=== PATIENT | female | born 2000 | race Two or more races ===

== ENCOUNTER 2024-03-09 23:48 | Emergency (ER) | payer OTHER, SELFPAY ==
[2024-03-09 23:48] VITALS: BMI 23.6
[2024-03-09 23:58] VITALS: BP 96/66; PULSE 100; RESP 18; TEMP 36.4; O2SAT 99
--- NOTE | 2024-03-10 00:03 | PD.EDURI ---
Upper Respiratory Inf. RME/HPI General Chief Complaint: Flu Like Symptoms Stated Complaint: FLU /VOMITING Time Seen by Provider: 03/09/24 23:50 Arrival date/time: 03/09/24 23:48 23-year-old female presents to the emergency department complaining of diarrhea, nausea vomiting, and cough that is been ongoing since this past Saturday and was diagnosed with influenza yesterday and is taking Tamiflu. Limitations: no limitations Related Data Previous Rx's ?Medication ?Instructions ?Recorded albuterol sulfate 90 mcg/actuation 2 puff inhalation Q6H PRN cough / 10/25/20 aerosol inhaler wheezing #6.7 grams inhalational spacing device #1 ea 10/25/20 (Aerochamber MV spacer) methylprednisolone 4 mg tablets in See Rx Instructions .Route 10/30/20 a dose pack (Medrol ([place])) .COMPLEX #21 tabs hydrocodone 5 mg-acetaminophen 325 1 tab PO BID PRN pain #7 tabs 02/14/21 mg tablet ibuprofen 600 mg tablet 600 mg PO Q6H #30 tabs 05/28/23 ibuprofen 600 mg tablet 600 mg PO Q6H #30 tabs 06/14/23 ibuprofen 600 mg tablet 600 mg PO Q8H PRN pain #20 tabs 03/10/24 ondansetron 4 mg disintegrating 4 mg PO Q8H PRN nausea and 03/10/24 tablet vomiting #7 tabs Allergies Allergy/AdvReac Type Severity Reaction Status Date / Time No Known Allergies Allergy Verified 12/05/23 06:00 Review of Systems Review of Systems Systems Reviewed: All systems reviewed, normal except as documented Constitutional Constitutional: Reports system reviewed and no additional complaints, except as documented, Denies body ache(s), Denies chills and Denies fever(s) Eyes Eyes: Reports system reviewed and no additional complaints, except as documented and Denies change in vision ENT Ears, Nose, Mouth, and Throat: Reports system reviewed and no additional complaints, except as documented, Denies disequilibrium, Denies dizziness, Denies sore throat and Denies vertigo Cardiovascular Cardiovascular: Reports system reviewed and no additional complaints, except as documented, Denies chest pain and Denies dyspnea Respiratory Respiratory: Reports system reviewed and no additional complaints, except as documented, Denies chest congestion, Reports cough and Denies dyspnea Gastrointestinal Gastrointestinal: Reports system reviewed and no additional complaints, except as documented, Denies abdominal pain, Reports diarrhea, Reports nausea and Reports vomiting Musculoskeletal Musculoskeletal: Reports system reviewed and no additional complaints, except as documented, Denies abnormal gait and Denies arthralgias Integumentary/Breasts Skin/Breast: Reports system reviewed and no additional complaints, except as documented, Denies erythema, Denies rash and Denies wounds Neurologic Neurologic: Reports system reviewed and no additional complaints, except as documented, Denies abnormal gait, Denies disequilibrium, Denies dizziness and Denies vertigo Past Medical History Past Medical History NEUROLOGIC: Negative Neurological Disorders CARDIAC: Negative Cardiac Disorders or Congestive Heart Failure RESPIRATORY: Negative Chronic Obstructive Pulmonary Disease (COPD) or Asthma GENITOURINARY: Negative Renal Disease ENDOCRINE: Negative Diabetes Mellitus Type 1 or Diabetes Mellitus Type 2 HEMATOLOGIC: Positive Anemia; Negative Sickle Cell Disease OTHER HISTORY: Positive Blood Transfusions; Negative Falls Social History SMOKING STATUS: Never smoker SECOND HAND EXPOSURE: No SUBSTANCE USE: does not use ED Exam General Limitations: Present no limitations General appearance: Present alert and in no apparent distress Head Head exam: Present atraumatic Eye Eye exam: Present normal appearance, PERRL and EOMI ENT ENT exam: Present normal exam, normal oropharynx and mucous membranes moist Neck Neck exam: Present normal inspection, full ROM and trachea midline Chest Chest inspection: Present normal inspection and symmetric chest wall rise Respiratory Respiratory exam: Present normal lung sounds bilaterally Cardiovascular Cardiovascular exam: Present regular rate, normal rhythm and normal heart sounds Abdominal Exam Abdominal exam: Present soft and normal bowel sounds Extremities Exam Extremities exam: Present normal inspection and full ROM Back Exam Back exam: Present normal inspection and full ROM Neurological Exam Neurological exam: Present alert, oriented X3 and CN II-XII intact Psychiatric Psychiatric exam: Present normal affect and normal mood Skin Skin exam: Present warm, dry, intact and normal color Course Quality Measures none Orders Category Date Time Status Ibuprofen Tab [Motrin Tab] Med 03/10/24 00:11 Discontinued 600 mg PO X1 ONE Ondansetron Odt [Zofran Odt] Med 03/10/24 00:02 Discontinued 4 mg PO X1 ONE Vital Signs Vital signs: Vital Signs Temperature 97.6 F 03/09/24 23:58 Pulse Rate 100 03/09/24 23:58 Respiratory Rate 18 03/09/24 23:58 Blood Pressure 96/66 03/09/24 23:58 Pulse Oximetry (%) 99 03/09/24 23:58 Oxygen Delivery Method Room Air 03/09/24 23:58 99% room air within normal limits Upper Respiratory Infection MDM Narrative MDM Narrative:: 23-year-old female presents to the emergency department complaining of diarrhea, nausea vomiting, and cough that is been ongoing since this past Saturday and was diagnosed with influenza yesterday and is taking Tamiflu. No adventitious lung sounds on auscultation. Abdomen is soft and nontender. Patient appears nontoxic and is hemodynamically stable. Patient reports recently diagnosed with influenza. Moist mucous membranes patient does not appear to be dehydrated. 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 Patient data External records reviewed:: [facility] previous records Clinical information provided by:: patient Social determinants that could affect healthcare access:: none Patient has the following chronic illnesses:: See chart How is presenting disease/condition affected by chronic disease/condition?: uneffected by Evaluation data The following diagnostics were reviewed and interpreted by me:: other (specify) (N/A) Lab and/or radiology exams considered but not ordered:: N/A Interpretation Summary: N/A Medications / Prescriptions Medications or Prescriptions considered but not ordered:: Ordered Medication administrations:: Medication Administration History Discontinued Medications Ibuprofen (Ibuprofen Tab 600 Mg Tablet) 600 mg PO X1 ONE Stop: 03/10/24 00:12 Last Admin: 03/10/24 00:20 Dose: Not Given Documented By: OA Non-Admin Reason: Patient Refused Ondansetron HCl (Ondansetron Odt 4 Mg Tabrap) 4 mg PO X1 ONE; Protocol Stop: 03/10/24 00:03 Last Admin: 03/10/24 00:12 Dose: 4 mg Documented By: OA Given Consultations Consultation(s) initiated? (list below): No Diagnosis Upper Respiratory Differential Diagnosis: upper respiratory infection, viral infection, bronchitis, influenza and pharyngitis Most likely diagnosis given after review of the tests above:: Influenza Admission Indicated Admission indicated?: not indicated Admission Request Was there a request for admission?: No Disposition Plan Disposition Plan: Discharge Discharge Attestation Discharge Attestation: The patient and all family members were given an opportunity to ask questions and understood the discharge instructions. Discharge instructions specifically effects, indications for sooner follow up or return to the emergency department, and the expected course of current diagnosis. Patient condition: Stable Discharge Plan Plan Patient Disposition: HOME (Self Care) Disposition Comment: Stable Prescriptions/Referrals Prescriptions/Med Rec: New ondansetron 4 mg tablet,disintegrating 4 mg PO Q8H PRN (Reason: nausea and vomiting) Qty: 7 0RF ibuprofen 600 mg tablet 600 mg PO Q8H PRN (Reason: pain) Qty: 20 0RF No Action albuterol sulfate 90 mcg/actuation HFA aerosol inhaler 2 puff INH Q6H PRN (Reason: cough / wheezing ) Qty: 6.7 0RF Rx Instructions: administer with spacer (DME) Aerochamber MV spacer See Dose Instructions .ROUTE .MEDSUPPLY Qty: 1 0RF Dose Instruction: As directed Rx Instructions: As directed methylprednisolone [Medrol ([place])] 4 mg tablets,dose pack See Rx Instructions .ROUTE .COMPLEX Qty: 21 0RF Rx Instructions: Follow package instructions hydrocodone-acetaminophen 5-325 mg tablet 1 tab PO BID MDD 3 PRN (Reason: pain) Qty: 7 0RF ibuprofen 600 mg tablet 600 mg PO Q6H Qty: 30 0RF ibuprofen 600 mg tablet 600 mg PO Q6H Qty: 30 0RF Referrals: Temporary Provider,ED [Physician] - In 1 week Problem List Clinical Impression: Influenza Patient/Caregiver Discharge Instructions Discharge Activity: activity as tolerated Education Materials: ED Influenza (Adult) Additional Instructions: Drink plenty of fluids and get plenty of rest. Take Tylenol or ibuprofen as needed for fever or pain. Follow-up with primary care provider in 2 to 3 days. Return to emergency department for any worsening symptoms or as needed. Print Language: Maori Stand Alone Forms: [employer] Award Info., Patient Portal Info Letter PA/OUTSIDE PLANT SUPERVISOR Supervising Physician PA/OUTSIDE PLANT SUPERVISOR Supervising Physician: Dr. Sharma
[2024-03-10] MEDS: ONDANSETRON ODT 4 MG TABRAP PO (00:12)
== END 2024-03-10 00:32 | disposition home or self-care (01) ==
LOC: SERX 03-10 00:30
PROVIDERS: Emergency Provider Emergency Medicine; PCP Nurse Practitioner Family
DX: J11.1 Influenza due to unidentified influenza virus with other respiratory manifestations (principal)
CPT/HCPCS: 99282; Q0162

== ENCOUNTER 2024-04-19 00:28 | Emergency (ER) | payer BC, SELFPAY ==
[2024-04-19 00:29] VITALS: BMI 22.6
--- NOTE | 2024-04-19 00:32 | EKG_ITS ---
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
[2024-04-19 01:09] VITALS: BP 117/78; PULSE 65; RESP 18; TEMP 36.6; O2SAT 100
--- NOTE | 2024-04-19 01:33 | PD.EDANX ---
ED Anxiety RME/HPI General Chief Complaint: Chest Pain Stated Complaint: CHEST PAIN Time Seen by Provider: 04/19/24 01:30 Arrival date/time: 04/19/24 00:28 23F with history of anxiety presents to ED with 2 weeks of intermittent CP and SOB. Patient has a lot of increased stress in personal life including heavy school work-load. Patient denies SI/HI. Limitations: no limitations Related Data Previous Rx's ?Medication ?Instructions ?Recorded albuterol sulfate 90 mcg/actuation 2 puff inhalation Q6H PRN cough / 10/25/20 aerosol inhaler wheezing #6.7 grams inhalational spacing device #1 ea 10/25/20 (Aerochamber MV spacer) methylprednisolone 4 mg tablets in See Rx Instructions .Route 10/30/20 a dose pack (Medrol ([place])) .COMPLEX #21 tabs hydrocodone 5 mg-acetaminophen 325 1 tab PO BID PRN pain #7 tabs 02/14/ mg tablet ibuprofen 600 mg tablet 600 mg PO Q6H #30 tabs 05/28/23 ibuprofen 600 mg tablet 600 mg PO Q6H #30 tabs 06/14/23 ibuprofen 600 mg tablet 600 mg PO Q8H PRN pain #20 tabs 03/10/24 ondansetron 4 mg disintegrating 4 mg PO Q8H PRN nausea and 03/10/24 tablet vomiting #7 tabs Allergies Allergy/AdvReac Type Severity Reaction Status Date / Time No Known Allergies Allergy Verified 12/05/23 06:00 Review of Systems Review of Systems Systems Reviewed: All systems reviewed, normal except as documented Constitutional Constitutional: Reports system reviewed and no additional complaints, except as documented, Denies fever(s) and Denies headache(s) ENT Ears, Nose, Mouth, and Throat: Denies disequilibrium and Denies headache(s) Cardiovascular Cardiovascular: Reports system reviewed and no additional complaints, except as documented, Reports as per HPI, Reports chest pain and Reports dyspnea Respiratory Respiratory: Reports system reviewed and no additional complaints, except as documented, Denies cough and Reports dyspnea Gastrointestinal Gastrointestinal: Reports system reviewed and no additional complaints, except as documented, Denies abdominal pain, Denies nausea and Denies vomiting Neurologic Neurologic: Reports system reviewed and no additional complaints, except as documented, Denies confusion, Denies disequilibrium and Denies headache(s) Psychiatric Psychiatric: Denies confusion Past Medical History Past Medical History NEUROLOGIC: Negative Neurological Disorders CARDIAC: Negative Cardiac Disorders or Congestive Heart Failure RESPIRATORY: Negative Chronic Obstructive Pulmonary Disease (COPD) or Asthma GENITOURINARY: Negative Renal Disease ENDOCRINE: Negative Diabetes Mellitus Type 1 or Diabetes Mellitus Type 2 HEMATOLOGIC: Positive Anemia; Negative Sickle Cell Disease OTHER HISTORY: Positive Blood Transfusions; Negative Falls Social History SMOKING STATUS: Never smoker SECOND HAND EXPOSURE: No SUBSTANCE USE: does not use ED Exam General Limitations: Present no limitations General appearance: Present alert and anxious Head Head exam: Present atraumatic Eye Eye exam: Present normal appearance, PERRL and EOMI ENT ENT exam: Present normal exam, normal oropharynx and mucous membranes moist Neck Neck exam: Present normal inspection, full ROM and trachea midline Chest Chest inspection: Present normal inspection and symmetric chest wall rise Respiratory Respiratory exam: Present normal lung sounds bilaterally Cardiovascular Cardiovascular exam: Present regular rate, normal rhythm and normal heart sounds Abdominal Exam Abdominal exam: Present soft and normal bowel sounds Extremities Exam Extremities exam: Present normal inspection and full ROM Back Exam Back exam: Present normal inspection and full ROM Neurological Exam Neurological exam: Present alert, oriented X3 and CN II-XII intact Psychiatric Psychiatric exam: Present normal affect and normal mood Skin Skin exam: Present warm, dry, intact and normal color Course Quality Measures none Orders Category Date Time Status EKG (ED ONLY) *Do not use* NOW Care 04/19/24 00:32 Completed EKG (ED Only) Stat Exams 04/19/24 00:32 Ordered Vital Signs Vital signs: Vital Signs Temperature 97.8 F 04/19/24 01:09 Pulse Rate 65 04/19/24 01:09 Respiratory Rate 18 04/19/24 01:09 Blood Pressure 117/78 04/19/24 01:09 Pulse Oximetry (%) 100 04/19/24 01:09 Oxygen Delivery Method Room Air 04/19/24 01:09 Anxiety MDM Narrative MDM Narrative: 23F with history of anxiety presents to ED with 2 weeks of intermittent CP and SOB. Patient has a lot of increased stress in personal life including heavy school work-load. Patient denies SI/HI. Physical exam reveals mild chest wall tenderness. Patient is afebrile, alert, but crying/anxious a bit when asked about stress. EKG is NSR. Likely combo of costochondritis and increased reaction. Patient declines Valium. Patient data External records reviewed:: [facility] previous records Clinical information provided by:: patient Social determinants that could affect healthcare access:: mental health Patient has the following chronic illnesses:: anxiety How is presenting disease/condition affected by chronic disease/condition?: exacerbated by Evaluation data The following diagnostics were reviewed and interpreted by me:: EKG tracing(s) Lab and/or radiology exams considered but not ordered:: ordered Interpretation Summary: above Medications / Prescriptions Medications or Prescriptions considered but not ordered:: not ordered Medication administrations:: n/a Consultations Consultation(s) initiated? (list below): No Diagnosis Differential diagnosis anxiety: hyperventilation, panic disorder, acute anxiety and other (costochondritis ) Most likely diagnosis given after review of the tests above:: costochondritis, anxiety in stress rection Admission Indicated Admission indicated?: not indicated Admission Request Was there a request for admission?: No Disposition Plan Disposition Plan: Discharge Discharge Attestation Discharge Attestation: The patient and all family members were given an opportunity to ask questions and understood the discharge instructions. Discharge instructions specifically effects, indications for sooner follow up or return to the emergency department, and the expected course of current diagnosis. Patient condition: Stable Discharge Plan Plan Patient Disposition: HOME (Self Care) Disposition Comment: Stable Prescriptions/Referrals Prescriptions/Med Rec: No Action albuterol sulfate 90 mcg/actuation HFA aerosol inhaler 2 puff INH Q6H PRN (Reason: cough / wheezing ) Qty: 6.7 0RF Rx Instructions: administer with spacer (DME) Aerochamber MV spacer See Dose Instructions .ROUTE .MEDSUPPLY Qty: 1 0RF Dose Instruction: As directed Rx Instructions: As directed methylprednisolone [Medrol ([place])] 4 mg tablets,dose pack See Rx Instructions .ROUTE .COMPLEX Qty: 21 0RF Rx Instructions: Follow package instructions hydrocodone-acetaminophen 5-325 mg tablet 1 tab PO BID MDD 3 PRN (Reason: pain) Qty: 7 0RF ibuprofen 600 mg tablet 600 mg PO Q6H Qty: 30 0RF ondansetron 4 mg tablet,disintegrating 4 mg PO Q8H PRN (Reason: nausea and vomiting) Qty: 7 0RF ibuprofen 600 mg tablet 600 mg PO Q8H PRN (Reason: pain) Qty: 20 0RF ibuprofen 600 mg tablet 600 mg PO Q6H Qty: 30 0RF Problem List Clinical Impression: Costochondritis, Anxiety in acute stress reaction Patient/Caregiver Discharge Instructions Education Materials: Your Body's Response to Anxiety Additional Instructions: Please follow-up with PCP within 24-48 hours and return immediately if symptoms worsen. If problems persist, can see PCP about counseling, meds, and/or possible referral to psychiatry. Print Language: Zimbabwean Stand Alone Forms: Patient Portal Info Letter YURIY/ANGELI Supervising Physician YURIY/ANGELI Supervising Physician: Dr. Patino
== END 2024-04-19 01:36 | disposition home or self-care (01) ==
LOC: SERX 01:32
PROVIDERS: Emergency Provider Emergency Medicine; PCP Family Medicine
DX: M94.0 Chondrocostal junction syndrome [Tietze] (principal); F43.0 Acute stress reaction; F41.9 Anxiety disorder, unspecified
CPT/HCPCS: 93005; 99283